=== PATIENT | male | born 1965 | race Caucasian/White ===

== ENCOUNTER 2023-09-27 15:19 | Outpatient (CLI) | payer BC, SELFPAY ==
[2023-09-28 05:21] LABS: Measles Antibodies, IgG <13.5 AU/mL (Immune >16.4); Mumps Abs, IgG 13.1 AU/mL (Immune >10.9); Rubella Antibodies, IgG 1.17 index (Immune >0.99); Varicella Zoster IgG >4000 index (Immune >165)
[2023-09-28 07:02] LABS: Hepatitis B Surf Ab Quant <3.1 mIU/mL (Immunity>9.9)
== END 2023-09-27 23:59 ==
LOC: LAB 15:26
PROVIDERS: PCP Internal Medicine
DX: Z01.84 Encounter for antibody response examination (principal)
CPT/HCPCS: 36415; 86706; 86735; 86762; 86765; 86787